=== PATIENT | male | born 1965 | race African-American/Black ===

== ENCOUNTER 2024-07-31 02:22 | Emergency (ER) | payer OTHER, SELFPAY ==
[2024-07-31] VITALS (79 sets, daily range): BP systolic 72–138; BP diastolic 47–99; PULSE 59–76; TEMP 36.7; O2SAT 91–100; BMI 35.6
--- NOTE | 2024-07-31 02:24 | ECG_ITS ---
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
--- NOTE | 2024-07-31 02:24 | XR_ITS ---
The [address] [address] Patient Name: KWABENA CASTELLANOS MRN: [id number] date: 1965 Sex: M Assigned Patient Location: ER Current Patient Location: ER Accession/Order Number: [id number] Exam Date: 07/31/2024 02:45 Report Date: 07/31/2024 03:07 At the request of: SANDOR HINOJOSA Procedure: XR chest 1V EXAM: XR chest 1V HISTORY: hypotension COMPARISON: None. TECHNIQUE: One view of the chest was obtained. FINDINGS: A left chest cardiac pacemaker device is in place. The cardiac silhouette is enlarged. The lungs are clear. There is no significant pneumothorax or pleural effusion. No acute osseous abnormality is seen. XR/XR chest 1V IMPRESSION: 1. Enlarged cardiac silhouette with clear lungs. Electronically authenticated by: Isacc LANGLEY Date: 07/31/2024 03:07
[2024-07-31 02:46] LABS: Hematocrit 48.9 % (42.0-54.0); Hemoglobin 15.5 g/dL (14.0-18.0); Mean Corpuscular Volume 92.1 fL (80.0-94.0); Red Blood Count 5.31 10^6/uL (4.70-6.10); White Blood Count 4.1 10^3/uL (4.0-11.0)
[2024-07-31 02:47] LABS: Eosinophils Absolute Auto 0.5 10^3/uL (0.0-0.7); Eosinophils Percent Auto 11.8 % (0.9-7.0); Immature Granulocytes Abs Auto 0.01 10^3/uL (0.00-0.03); Immature Granulocytes Pct Auto 0.2 % (0.0-0.5); Lymphocytes Absolute Auto 0.9 10^3/uL (1.2-3.8); Lymphocytes Percent Auto 22.2 % (20.5-60.0); Mean Corpuscular HGB Conc 31.7 g/dL (29.9-35.2); Mean Corpuscular Hemoglobin 29.2 pg (25.9-34.0); Mean Platelet Volume 9.4 fL (9.5-13.5); Monocytes Absolute Auto 0.6 10^3/uL (0.3-0.8); Neutrophils Absolute Auto 2.1 10^3/uL (1.4-6.5); Neutrophils Percent Auto 49.8 % (43.0-75.0); Platelet Count 208 10^3/uL (150-450); Red Cell Distribution Width 15.2 % (11.0-15.0)
[2024-07-31 03:03] LABS: INR 1.44; Partial Thromboplastin Time 35.3 sec (22.3-36.2); Prothrombin Time 14.7 sec (9.0-11.6)
[2024-07-31 03:05] LABS: Anion Gap 8.4; BUN Creatinine Ratio 7.5; Carbon Dioxide 28.5 mmol/L (21.0-32.0); Chloride 103 mmol/L (98-107); Estimated GFR (African America 49 (>=60 mL/min/1.73m^2); Estimated GFR (Non-African Ame 41 (>=60 mL/min/1.73m^2); Glucose 91 mg/dL (74-106); Lactate/Lactic Acid 1.4 mmol/L (0.4-2.0); Potassium 3.9 mmol/L (3.5-5.1); Sodium 136 mmol/L (136-145)
[2024-07-31 03:07] LABS: Troponin I High Sensitivity 184.7 pg/mL (4.0-76.1)
--- NOTE | 2024-07-31 03:37 | ECG_ITS ---
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
[2024-07-31] MEDS: ONDANSETRON PF 4 MG/2 ML VIAL IV (03:46)
[2024-07-31] MEDS: MORPHINE SULFATE 4 MG/ML VIAL IV (03:46)
[2024-07-31 04:56] LABS: Bilirubin Urine NEGATIVE (NEGATIVE); Blood Urine NEGATIVE (NEGATIVE); Clarity Urine CLEAR (CLEAR); Color Urine YELLOW (YELLOW); Glucose Urine UA >=1000 mg/dL (NEGATIVE); Ketones Urine NEGATIVE (NEGATIVE); Leukocyte Esterase Urine NEGATIVE (NEGATIVE); Nitrite Urine POSITIVE (NEGATIVE); Protein Urine NEGATIVE (NEG/TRACE)
[2024-07-31 05:05] LABS: Amorphous Sediment Urine FEW; Bacteria Urine TRACE #/HPF (NONE SEEN); Cast Seen? NONE SEEN #/LPF (NONE SEEN); Crystals Seen? Seen #/HPF (None Seen); Mucus Urine NONE SEEN (NONE SEEN); RBC Urine 0-2 #/HPF (0-2); Squamous Epithelial Cell Urine RARE #/LPF (NONE/RARE); Urine Culture Indicated YES
[2024-07-31] MEDS: 0.9 % SODIUM CHLORIDE 500 ML IV (05:20)
[2024-07-31] MEDS: CEFTRIAXONE 1,000 MG in 0.9 % SODIUM CHLORIDE 50 ML 100 MG IV (05:25)
--- NOTE | 2024-07-31 06:23 | ED_ITS ---
HPI HPI - General Adult General Chief complaint: Weakness Stated complaint: WEAKNESS Time Seen by Provider: 07/31/24 02:24 Source: caregiver Mode of arrival: ambulance Limitations: language barrier Limitations comment: APHAGIC R/T CVA History of Present Illness HPI narrative: 59-year-old male to the emergency department with chief complaint of abnormal vital signs. Patient came from [facility]. He had a routine vital check tonight and was found to be hypotensive with a systolic blood pressure in the 80s. Patient had no complaints at that time. He is otherwise been at his baseline health. No diarrhea, blood in the stool, dark tarry stools. He denies any chest pain or shortness of breath. No fever, sweats, chills. No nausea or vomiting. He reports normal intake. Denies any dysuria, urgency, frequency. He was recently hospitalized at [facility] for NSTEMI/CVA with thrombectomy. Past medical history: CAD, CHF w/ EF 15%, CVA, CKD stage III Related Data Home Medications ?Medication ?Instructions ?Recorded ?Confirmed acetaminophen 325 mg capsule 650 mg PO Q6H PRN fever or pain 07/31/24 07/31/24 aspirin 81 mg tablet,delayed 81 mg PO QDAY 07/31/24 07/31/24 release atorvastatin 40 mg tablet 40 mg PO BEDTIME 07/31/24 07/31/24 carvedilol 25 mg tablet 25 mg PO BID 07/31/24 07/31/24 dapagliflozin propanediol 10 mg 10 mg PO QDAY 07/31/24 07/31/24 tablet (Farxiga) escitalopram oxalate 10 mg tablet 10 mg PO QDAY 07/31/24 07/31/24 furosemide 40 mg tablet 40 mg PO QDAY 07/31/24 07/31/24 gabapentin 100 mg capsule 100 mg PO Q8H 07/31/24 07/31/24 levetiracetam 250 mg tablet 250 mg PO BID 07/31/24 07/31/24 (Keppra) polyethylene glycol 3350 17 17 g PO DAILY 07/31/24 07/31/24 gram/dose oral powder (Miralax) sacubitril 24 mg-valsartan 26 mg 1 tab PO BID 07/31/24 07/31/24 tablet (Entresto) sennosides 8.6 mg tablet (Senna 17.2 mg PO BEDTIME 07/31/24 07/31/24 Laxative) warfarin 4 mg tablet 4 mg PO QDAY 07/31/24 07/31/24 Allergies Allergy/AdvReac Type Severity Reaction Status Date / Time No Known Drug Allergies Allergy Verified 07/31/24 02:31 Opioid HPI Opioid Management Most Recent Opioid Data: Last Pain Scale 0 07/31/24 04:35 07/31/24 Last ED Pain Assessment 07/31/24 04:35 Review of Systems ROS Status of ROS 10 or more systems reviewed and unremark able except as noted in history and below [facility] Medical History (Updated 07/31/24 @ 06:30 by Kuldeep Doty MD) CVA (cerebral vascular accident) ?I63.9 - Cerebral infarction, unspecified (ICD-10) NSTEMI (non-ST elevated myocardial infarction) ?I21.4 - Non-ST elevation (NSTEMI) myocardial infarction (ICD-10) CHF (congestive heart failure) ?I50.9 - Heart failure, unspecified (ICD-10) Social History Little interest or pleasure in doing things: not at all Feeling down, depressed, or hopeless: not at all Exam Narrative Exam Narrative: VITALS: I have reviewed the triage vital signs. GENERAL: Well developed, well appearing adult in no acute distress. NEURO: Alert and oriented. Dysarthria/aphasia. moves all extremities. Face is symmetric and expressive. EYES: PERRL. No scleral icterus or conjunctival injection. No discharge. HENT: Normocephalic, atraumatic. Hearing is grossly intact. Nares grossly patent and without discharge. Mucous membranes moist. NECK: No JVD. Patient moves neck without restriction. CARDIO: Rhythm regular. Normal rate. No murmur, rub, or gallop. Pulses equal bilaterally in the upper and lower extremity. No lower extremity edema. PULM: Lungs clear to auscultation in all gupta. No wheezes, rales, or rhonchi. No conversational dyspnea. No splinting, stridor, or accessory muscle use. GI/: Abdomen is soft and non-tender. Normoactive bowel sounds. EXTREMITIES: Symmetric muscle bulk. No joint swelling. No clubbing, cyanosis, or deformity. SKIN: Warm and dry. Normal turgor. No rash or lesions appreciated. PSYCH: Mood, affect, and interaction is appropriate to the setting. Constitutional Vital Signs, click to edit/add: Last Vital Signs Temp 98.1 F 07/31/24 02:26 Pulse 67 07/31/24 05:50 Resp 17 07/31/24 05:50 BP 83/60 L 07/31/24 06:00 Pulse Ox 97 07/31/24 05:50 O2 Del Method Room Air 07/31/24 03:49 O2 Flow Rate 2 07/31/24 03:49 Course Vital Signs Vital signs: Vital Signs Temperature 98.1 F 07/31/24 02:26 Pulse Rate 67 07/31/24 02:26 Respiratory Rate 14 07/31/24 02:26 Blood Pressure 120/84 07/31/24 02:26 Pulse Oximetry 99 07/31/24 02:26 Oxygen Delivery Method Room Air 07/31/24 02:26 Temperature 98.1 F 07/31/24 02:26 Pulse Rate 67 07/31/24 05:50 Respiratory Rate 17 07/31/24 05:50 Blood Pressure 83/60 L 07/31/24 06:00 Pulse Oximetry 97 07/31/24 05:50 Oxygen Delivery Method Room Air 07/31/24 03:49 Oxygen Delivery Flow Rate 2 07/31/24 03:49 Medical Decision Making MDM Narrative Medical decision making narrative: 59-year-old male to the emergency department to avoid hypotension. Vital stable, the patient is afebrile. He arrives and his initial blood pressure is normal. Basic labs ordered. Patient agrees with this plan. CBC at baseline. He has baseline kidney function. His lactate is normal. His troponin is elevated, repeat in 1 hours flat. Patient began to complain of some chest pain. A repeat EKG was performed and had no dynamic changes. Urinalysis concerning for UTI. Rocephin was ordered. He received a total of 1.5 L crystalloid. He was volume responsive. Blood pressure after fluids 99/63 for MAP of 75 which is adequate. On repeat evaluation he appears to be perfusing well. Case was discussed with the project economist at [facility] Dr. Dowling who recommends admission to the hospitalist service. Patient was auto accepted to the service of Dr. Oliveira. Medical Records Medical records reviewed: Yes I reviewed the patient's medical records Lab Data Lab results reviewed: Yes I reviewed the patient's lab results Labs: Lab Results 07/31/24 07/31/24 07/31/24 Range/Units 02:35 03:35 04:45 WBC 4.1 (4.0-11.0) 10^3/uL RBC 5.31 (4.70-6.10) 10^6/uL Hgb 15.5 (14.0-18.0) g/dL Hct 48.9 (42.0-54.0) % MCV 92.1 (80.0-94.0) fL MCH 29.2 (25.9-34.0) pg MCHC 31.7 (29.9-35.2) g/dL RDW 15.2 H (11.0-15.0) % Plt Count 208 (150-450) 10^3/uL MPV 9.4 L (9.5-13.5) fL Neut % (Auto) 49.8 (43.0-75.0) % Lymph % (Auto) 22.2 (20.5-60.0) % Treasure % (Auto) 15.0 H (1.7-12.0) % Eos % (Auto) 11.8 H (0.9-7.0) % Baso % (Auto) 1.0 (0.2-2.0) % Neut # (Auto) 2.1 (1.4-6.5) 10^3/uL Lymph # (Auto) 0.9 L (1.2-3.8) 10^3/uL [place] # (Auto) 0.6 (0.3-0.8) 10^3/uL Eos # (Auto) 0.5 (0.0-0.7) 10^3/uL Baso # (Auto) 0.0 (0.0-0.1) 10^3/uL Abs Immat Gran (auto) 0.01 (0.00-0.03) 10^3/uL Imm/Tot Granulo (auto) 0.2 (0.0-0.5) % PT 14.7 H (9.0-11.6) sec INR 1.44 APTT 35.3 (22.3-36.2) sec Sodium 136 (136-145) mmol/L Potassium 3.9 (3.5-5.1) mmol/L Chloride 103 (98-107) mmol/L Carbon Dioxide 28.5 (21.0-32.0) mmol/L Anion Gap 8.4 BUN 13.0 (7.0-18.0) mg/dL Creatinine 1.74 H (0.70-1.30) mg/dL Est GFR ( Amer) 49 L (>=60 mL/min/1.73m^2) Est GFR (Non-Af Amer) 41 L (>=60 mL/min/1.73m^2) BUN/Creatinine Ratio 7.5 Glucose 91 (74-106) mg/dL Lactate 1.4 (0.4-2.0) mmol/L Calcium 9.0 (8.5-10.1) mg/dL Troponin I High Sens 184.7 H* 188.0 H* (4.0-76.1) pg/mL Urine Color Yellow (YELLOW) Urine Clarity Clear (CLEAR) Urine pH 6.0 (5.0-9.0) Ur Specific [place] 1.010 (1.005-1.025) Urine Protein Negative (NEG/TRACE) mg/dL Urine Glucose (UA) >=1000 A (NEGATIVE) mg/dL Urine Ketones Negative (NEGATIVE) mg/dL Urine Occult Blood Negative (NEGATIVE) Urine Nitrite Positive A (NEGATIVE) Urine Bilirubin Negative (NEGATIVE) Urine Urobilinogen 2.0 A (0.2-1.0) EU/dL Ur Leukocyte Esterase Negative (NEGATIVE) Urine RBC 0-2 (0-2) #/HPF Urine WBC 5-10 A (NONE SEEN) #/HPF Ur Squamous Epith Cells Rare (NONE/RARE) #/LPF Urine Crystals Seen A (None Seen) #/HPF Amorphous Sediment Few Urine Bacteria Trace A (NONE SEEN) #/HPF Urine Casts None seen (NONE SEEN) #/LPF Urine Mucus None seen (NONE SEEN) Ur Culture Indicated? Yes Imaging Data Chest x-ray: Attestation: I have reviewed the pertinent imaging results. Radiologist's impression: ITS Impressions Chest X-Ray 07/31/24 02:24 IMPRESSION: 1. Enlarged cardiac silhouette with clear lungs. Electronically authenticated by: Isacc LANGLEY Date: 07/31/2024 03:07 ECG Data Attestation: I personally reviewed and interpreted this ECG as follows: (Atrial paced. No STEMI. Borderline QTc.) Critical Care Time Critical Care Time Critical Care Time: Yes Total Critical Care Time: 35 Attestation: Critical Care Procedure Note Authorized and Performed by: Kuldeep Doty DO Total critical care time: 35 min Due to a high probability of clinically significant, life threatening deterioration, the patient required my highest level of preparedness to in [facility] emergently and I personally spent this critical care time directly and personally managing the patient. This critical care time included obtaining a history; examining the patient; pulse oximetry; ordering and review of studies; arranging urgent treatment with development of a management plan; evaluation of patient's response to treatment; frequent reassessment; and, discussions with other providers. This critical care time was performed to assess and manage the high probability of imminent, life-threatening deterioration that could result in multi-organ failure. It was exclusive of separately billable procedures and treating other patients and teaching time. Please see MDM section and the rest of the note for further information on patient assessment and treatment. Discharge Plan Discharge Stand Alone Forms: Portal Instructions Chief Complaint: Weakness Clinical Impression: Acute hypotension, Acute UTI (urinary tract infection), Chest pain, Elevated troponin Patient Disposition: [facility] Time of Disposition Decision: 06:29 Discharge Location: [facility] Condition: Fair Mode of Transportation: EMS Prescriptions / Home Meds: No Action aspirin 81 mg tablet,delayed release (DR/EC) 81 mg PO QDAY atorvastatin 40 mg tablet 40 mg PO BEDTIME carvedilol 25 mg tablet 25 mg PO BID sacubitril-valsartan [Entresto] 24-26 mg tablet 1 tab PO BID escitalopram oxalate 10 mg tablet 10 mg PO QDAY dapagliflozin propanediol [Farxiga] 10 mg tablet 10 mg PO QDAY furosemide 40 mg tablet 40 mg PO QDAY gabapentin 100 mg capsule 100 mg PO Q8H levetiracetam [Keppra] 250 mg tablet 250 mg PO BID polyethylene glycol 3350 [Miralax] 17 gram/dose powder 17 g PO DAILY sennosides [Senna Laxative] 8.6 mg tablet 17.2 mg PO BEDTIME warfarin 4 mg tablet 4 mg PO QDAY Rx Instructions: INR 1.3 acetaminophen 325 mg capsule 650 mg PO Q6H PRN (Reason: fever or pain) Print Language: Tamazight Referrals: KYLIE ALVAREZ [Primary Care Provider] - 1 week
--- NOTE | 2024-07-31 09:44 | SWNOTE1 ---
Pt is from [facility], Amanda at [facility] requested ED note for continuity of care. SW faxed.
== END 2024-07-31 14:34 | disposition short-term general hospital (02) ==
PROVIDERS: Emergency Provider Student in an Organized Health Care Education/Training Program; PCP Family Medicine
DX: I95.9 Hypotension, unspecified (principal); N39.0 Urinary tract infection, site not specified; R07.9 Chest pain, unspecified; Z95.0 Presence of cardiac pacemaker; R79.89 Other specified abnormal findings of blood chemistry; I25.2 Old myocardial infarction; Z86.73 Personal history of transient ischemic attack (TIA), and cerebral infarction without residual deficits; I25.10 Atherosclerotic heart disease of native coronary artery without angina pectoris; I50.9 Heart failure, unspecified; N18.30 Chronic kidney disease, stage 3 unspecified
CPT/HCPCS: 36415; 71045; 80048; 81001; 83605; 84484; 85025; 85610; 85730; 87040; 87086; 93005; 96365; 96375; 99285; J0696; J2270; J2405

== ENCOUNTER 2024-09-10 13:58 | Outpatient (REF) | payer OTHER, SELFPAY ==
[2024-09-10 14:18] LABS: Basophils Percent Auto 0.2 % (0.2-2.0); Eosinophils Absolute Auto 0.1 10^3/uL (0.0-0.7); Eosinophils Percent Auto 1.6 % (0.9-7.0); Hematocrit 47.3 % (42.0-54.0); Hemoglobin 14.8 g/dL (14.0-18.0); Immature Granulocytes Abs Auto 0.02 10^3/uL (0.00-0.03); Immature Granulocytes Pct Auto 0.4 % (0.0-0.5); Lymphocytes Absolute Auto 0.7 10^3/uL (1.2-3.8); Lymphocytes Percent Auto 12.9 % (20.5-60.0); Mean Corpuscular HGB Conc 31.3 g/dL (29.9-35.2); Mean Corpuscular Hemoglobin 30.1 pg (25.9-34.0); Mean Corpuscular Volume 96.3 fL (80.0-94.0); Mean Platelet Volume 9.5 fL (9.5-13.5); Monocytes Absolute Auto 0.8 10^3/uL (0.3-0.8); Monocytes Percent Auto 14.8 % (1.7-12.0); Neutrophils Percent Auto 70.1 % (43.0-75.0); Platelet Count 194 10^3/uL (150-450); Red Blood Count 4.91 10^6/uL (4.70-6.10); Red Cell Distribution Width 16.8 % (11.0-15.0); White Blood Count 5.7 10^3/uL (4.0-11.0)
[2024-09-10 14:24] LABS: Anion Gap 14.5; BUN Creatinine Ratio 10.3; Calcium 9.1 mg/dL (8.5-10.1); Carbon Dioxide 26.9 mmol/L (21.0-32.0); Chloride 102 mmol/L (98-107); Estimated GFR (African America 52 (>=60 mL/min/1.73m^2); Estimated GFR (Non-African Ame 43 (>=60 mL/min/1.73m^2); Glucose 118 mg/dL (74-106); Potassium 4.4 mmol/L (3.5-5.1); Sodium 139 mmol/L (136-145)
== END 2024-09-10 13:59 | disposition home or self-care (01) ==
LOC: LAB 13:58
PROVIDERS: PCP Family Medicine; Visit Provider Family Medicine
DX: I50.43 Acute on chronic combined systolic (congestive) and diastolic (congestive) heart failure (principal); I52 Other heart disorders in diseases classified elsewhere
CPT/HCPCS: 36415; 80048; 85025

== ENCOUNTER 2024-09-24 14:12 | Outpatient (OUT) | payer OTHER, SELFPAY ==
--- NOTE | 2024-09-24 14:13 | XR_ITS ---
The [address] [address] Patient Name: KWABENA CASTELLANOS MRN: [id number] date: 1965 Sex: M Assigned Patient Location: Current Patient Location: Accession/Order Number: [id number] Exam Date: 09/24/2024 14:53 Report Date: 09/24/2024 14:54 At the request of: CHAVEZ DOSHI MD Procedure: XR knee LT 4V LEFT KNEE - 4 views CLINICAL HISTORY: Acute pain of left knee m25.562 COMPARISON: None FINDINGS: Moderate degenerative changes with patellofemoral joint space narrowing. No acute bony process. XR/XR knee LT 4V IMPRESSION: MODERATE DEGENERATIVE CHANGES OF THE LEFT KNEE WITHOUT ACUTE BONY PROCESS. Impression dictated by: Jericho Peguero Jr., DAryOAry09/24/2024 2:54 PM Dictation Location: [place] [address] Electronically authenticated by: [id number] Y Date: 09/24/2024 14:54
== END 2024-09-24 14:13 | disposition home or self-care (01) ==
LOC: EC 14:12
PROVIDERS: PCP Family Medicine; Visit Provider Student in an Organized Health Care Education/Training Program
DX: M25.562 Pain in left knee (principal); M17.12 Unilateral primary osteoarthritis, left knee
CPT/HCPCS: 73564